=== PATIENT | female | born 1975 | race Caucasian/White ===

== ENCOUNTER 2025-10-24 13:55 | Inpatient (IN) | payer SELFPAY ==
[~2025-10-24] VITALS: Ht 167.6 cm; Wt 73.6 kg
--- NOTE | 2025-10-24 14:26 | ED.PDOC ---
General HPI Comments 50 y.o female presents to the ED for a chief complaint of hematuria and abdominal pain that started 3 days ago. Patient describes pain as a cramping sensation that is constant, non radiating and has no alleviating factors. Patient reports bleeding has increased but denies any blood clot output. She denies fever, chills, nausea, vomiting, diarrhea, dysuria, or inability to urinate. Chief Complaint: Urinary Time Seen by MD: 14:17 Reviewed notes: Nurses Notes, Medications, Allergies Allergies: Coded Allergies: Doxycycline (Verified Allergy, Unknown, SWELLING, 10/24/25) [place] (Verified Allergy, Unknown, ANAPHYLAXIS, 10/24/25) Sulfa Antibiotics (Verified Allergy, Unknown, SWELLING, 10/24/25) Tramadol (Verified Allergy, Unknown, UPSET STOMACH, VOMIT, 10/24/25) Trazodone (Verified Allergy, Unknown, MIGRAINES, 10/24/25) Valproic Acid (Verified Allergy, Unknown, ANAPHYLAXIS, 10/24/25) Information Source: Patient Mode of Arrival: Ambulatory Severity: Moderate Timing: Days (3) Duration: Since onset Onset: Spontaneous Symptoms: Hematuria History of: None Location: Abdomen Modifying factors: None associated signs and symptoms: Abdominal Pain, Hematuria Past Medical History PAST MEDICAL HISTORY: High Lipids, Thyroid Surgical History: , Hernia Repair, Hysterectomy Surgical History (Other): Bilateral ankles, ovarian cyst removal, neck fusion BOTTOM LINER History: Ovarian Cysts Family History Family History: Family hx of heart jeremias, Family hx of lung jeremias Social History Smoker: Non-Smoker Alcohol: Denies ETOH Use Drugs: Marijuana Lives In: Home Constitutional: denies: chills, diaphoresis, fatigue, fever, malaise, sweats, weakness, others EENTM: denies: blurred vision, double vision, ear bleeding, ear discharge, ear drainage, ear pain, ear ringing, eye pain, eye redness, hearing loss, mouth pain, mouth swelling, nasal discharge, nose bleeding, nose congestion, nose pain, photophobia, tearing, throat pain, throat swelling, voice changes, others Respiratory: denies: cough, hemoptysis, orthopnea, SOB at rest, shortness of breath, SOB with excertion, stridor, wheezing, others Cardiovascular: denies: chest pain, dizzy spells, diaphoresis, Dyspnea on exertion, edema, irregular heart beat, left arm pain, lightheadedness, palpitations, PND, syncope, others Gastrointestinal: reports: abdominal pain; denies: abdomen distended, blood streaked bowels, constipated, diarrhea, dysphagia, difficulty swallowing, hematemesis, melena, nausea, poor appetite, poor fluid intake, rectal bleeding, rectal pain, vomiting, others Genitourinary: reports: hematuria; denies: abnormal vagina bleeding, burning, dyspareunia, dysuria, flank pain, frequency, incontinence, pain, , vagina discharge, urgency, others Neurological: denies: dizziness, fainting, headache, left sided numbness, left sided weakness, numbness, paresthesia, pre-existing deficit, right sided numbn ess, right sided weakness, seizure, speech problems, tingling, tremors, weakness, others Musculoskeletal: denies: back pain, gout, joint pain, joint swelling, muscle pain, muscle stiffness, neck pain, others Integumetry: denies: bruises, change in color, change in hair/nails, dryness, laceration, lesions, lumps, rash, wounds, others Allergic/Immunocompromised: denies: Difficulty Healing, Frequent Infections, Hives, Itching, others Hematologic/Lymphatic: denies: anemia, blood clots, easy bleeding, easy bruising, swollen glands, others Endocrine: denies: excessive hunger, excessive sweating, excessive thirst, excessive urination, flushing, intolerance to cold, intolerance to heat, unexplained weight gain, unexplained weight loss, others Psychiatric: denies: anxiety, bipolar disorder, depression, hopeless, panic disorder, schizophrenia, sleepless, suicidal, others All Other Systems: Reviewed and Negative Physical Exam General Appearance: Moderate Distress HEENT: Normal ENT Inspection, Pharynx Normal, TMs Normal Neck: Full Range of Motion, Non-Tender, Normal, Normal Inspection Respiratory: Chest Non-Tender, Lungs Clear, No Accessory Muscle Use, No Respiratory Distress, Normal Breath Sounds Cardiovascular: No Edema, No JVD, No Murmur, No Gallop, Normal Peripheral Pulses, Regular Rate/Rhythm Breast Exam: Deferred Gastrointestinal: Diffuse, No Organomegaly, No Pulsatile Mass, Normal Bowel Sounds, Soft, Tenderness Genitalia: Deferred Pelvic: Deferred Rectal: Deferred Extremities: No calf tenderness, Normal capillary refill, Normal inspection, Normal range of motion, Non-tender, No pedal edema Musculoskeletal : Apperance: Normal Neurologic: Alert, 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 Was a procedure done?: No Differential Diagnosis Kidney stone (Female): Pancreatitis Urinary Problem (Female): PID, Urolithiasis, UTI X-Ray, Labs, Meds, VS Vital Signs Date Time Temp Pulse Resp B/P (MAP) Pulse Ox O2 Delivery O2 Flow Rate FiO2 10/24/25 15:42 98.2 89 18 143/89 (107) 100 98.2 10/24/25 14:00 98.7 115 18 126/87 96 98.7 Lab Test 10/24/25 14:45 10/24/25 14:21 Range/Units White Blood Count 7.3 4.4-10.8 10^3/uL Red Blood Count 4.44 4.0-5.20 10^6/uL Hemoglobin 13.4 12.2-16.2 g/dL Hematocrit 39.4 36.0-46.0 % Mean Corpuscular Volume 88.7 80.0-100.0 fL Mean Corpuscular Hemoglobin 30.3 28.0-32.0 pg Mean Corpuscular Hemoglobin Concent 34.1 32.0-36.0 g/dL Red Cell Distribution Width 13.9 11.8-14.3 % Platelet Count 269 140-450 10^3/uL Mean Platelet Volume 7.4 6.9-10.8 fL Neutrophils (%) (Auto) 56.8 37.0-80.0 % Lymphocytes (%) (Auto) 35.5 10.0-50.0 % Monocytes (%) (Auto) 7.1 0.0-12.0 % Eosinophils (%) (Auto) 0.4 0.0-7.0 % Basophils (%) (Auto) 0.2 0.0-2.0 % Neutrophils # (Auto) 4.1 1.6-8.6 10 ^3/uL Lymphocytes # (Auto) 2.6 0.4-5.4 10 ^3/uL Monocytes # (Auto) 0.5 0-1.3 10 ^3/uL Eosinophils # (Auto) 0 0-0.8 10 ^3/uL Basophils # (Auto) 0 0-0.2 10 ^3/uL Nucleated Red Blood Cells 0.1 % Sodium Level 144 136-145 mmol/L Potassium Level 3.3 L 3.5-5.1 mmol/L Chloride Level 108 H 98-107 mmol/L Carbon Dioxide Level 26 20-31 mmol/L Anion Gap 10 5-15 Blood Urea Nitrogen 8 L 9-23 mg/dL Creatinine 0.84 0.550-1.02 mg/dL Glomerular Filtration Rate Calc 85 >90 mL/min BUN/Creatinine Ratio 9.5 L 10.0-20.0 Serum Glucose 81 74-106 mg/dL Calcium Level 9.4 8.7-10.4 mg/dL Urine Color Light-brown Yellow Urine Clarity Clear Clear Urine pH 6.0 5.0-9.0 Urine Specific [place] 1.007 1.001-1.035 Urine Protein 1+ H Negative Urine Ketones Negative Negative Urine Blood 3+ H Negative /uL Urine Nitrite Negative Negative Urine Bilirubin Negative Negative Urine Urobilinogen Normal Negative mg/dL Urine Leukocyte Esterase Negative Negative /uL Urine RBC 168 0 - 4 /hpf Urine Microscopic WBC 5 0-5 /HPF Urine Squamous Epithelial Cells Few <5 /hpf Urine Bacteria Few H None Seen /hpf Urine Glucose Normal Normal mg/dL Current Medications Medications (Trade) Dose Ordered Sig/Jeffrey Route Start Time Stop Time Status Last Admin Ondansetron HCl (Zofran) 4 mg ONCE ONCE IV 10/24/25 14:30 10/24/25 14:31 DC 10/24/25 15:49 Sodium Chloride 1,000 ml @ 1,000 mls/hr Q1H ONCE IVB 10/24/25 14:30 10/24/25 15:29 DC 10/24/25 15:44 Ketorolac Tromethamine (Toradol Injection) 30 mg ONCE ONCE IV 10/24/25 14:30 10/24/25 14:31 DC 10/24/25 15:48 EXAM: CT CT AB PEL WO CON-NO ORAL OR IV IMPRESSION: 1. No acute abdominopelvic abnormality. 2. Prior cholecystectomy with dilated common bile duct, possibly postsurgical, though comparison with prior imaging is suggested. If clinically indicated, MRCP may be beneficial in further assessment. IV Hep-Lock was established The patient was given a 1 L bolus of normal saline The patient was given Zofran 4 mg IV push The patient was given tramadol 30 mg IV push The urine test is negative for any infection The patient's CBC is within normal limits The chemistry panel is within normal limits. At this time, the patient is being admitted to the hospitalist The patient understands and agrees with the management. We are now giving the patient morphine for the pain in his Zofran for the nausea Images Reviewed?: Images reviewed and evaluated by me Time of 1ST Reevaluation: 14:22 Reevaluation 1ST: Unchanged Patient Education/Counseling: Diagnosis, Treatment, Prognosis Family Education/Counseling: No Family Present SEPSIS Sepsis Screen Date sepsis recognized/suspect: Oct 24, 2025 Time Sepsis recognized/suspect: 1401 Recent Procedure: No On Antibiotic Therapy: No Respiratory Rate >20: No Heart Rate >90: Yes Temp<36 C (96.8 F) or >38.3 C: No SBP <90 or MAP <65 mmHG: No New Acute Mental Status Change: No Is the patient on CPAP, BIPAP,: No Physician Orders Ct Ab Pel Wo Con-No Oral Or Iv (10/24/25 14:27) Heplock Iv (10/24/25 14:27) Vital Signs Date Time Temp Pulse Resp B/P (MAP) Pulse Ox O2 Delivery O2 Flow Rate FiO2 10/24/25 15:42 98.2 89 18 143/89 (107) 100 98.2 10/24/25 14:00 98.7 115 18 126/87 96 98.7 Laboratory Tests Test 10/24/25 14:45 White Blood Count 7.3 10^3/uL (4.4-10.8) Medications Medications Dose Ordered Sig/Jeffrey Route Start Time Stop Time Status Last Admin Dose Admin Ketorolac Tromethamine 30 mg ONCE ONCE IV 10/24/25 14:30 10/24/25 14:31 DC 10/24/25 15:48 Ondansetron HCl 4 mg ONCE ONCE IV 10/24/25 14:30 10/24/25 14:31 DC 10/24/25 15:49 Sodium Chloride 1,000 ml @ 1,000 mls/hr Q1H ONCE IVB 10/24/25 14:30 10/24/25 15:29 DC 10/24/25 15:44 Departure 1 Departure Time of Disposition: 17:27 Impression: Primary Impression: Intractable abdominal pain Disposition: 09 ADMITTED INPATIENT Admit to: Med Surg Condition: Fair Critical Care Note Critical Care Time?: No Stability Stability form required: No I personally scribed for RHONDA RUIZ MD ([email or web address]) on 10/24/25 at 14:26. Electronically submitted by Katelyn Guerra ([facility]). I personally scribed for RHONDA RUIZ MD ([email or web address]) on 10/24/25 at 16:36. Electronically submitted by Katelyn Guerra ([facility]). RHONDA RUIZ MD Oct 24, 2025 14:26
[2025-10-24 15:02] LABS: Sodium 144 mmol/L (136-145)
[2025-10-24 15:03] LABS: Anion Gap 10 (5-15); Calcium 9.4 mg/dL (8.7-10.4); Carbon Dioxide 26 mmol/L (20-31)
[2025-10-24 15:06] LABS: Chloride 108 mmol/L (98-107); Hematocrit 39.4 % (36.0-46.0); Hemoglobin 13.4 g/dL (12.2-16.2); Mean Corpuscular Hemoglobin 30.3 pg (28.0-32.0); Mean Corpuscular Volume 88.7 fL (80.0-100.0); Nucleated Red Blood Cells % 0.1 %; Potassium 3.3 mmol/L (3.5-5.1)
[2025-10-24 15:08] LABS: BUN/Creatinine Ratio 9.5 (10.0-20.0); Blood Urea Nitrogen 8 mg/dL (9-23); Glucose 81 mg/dL (74-106)
--- NOTE | 2025-10-24 15:14 | DVH ---
EXAM: CT CT AB PEL WO CON-NO ORAL OR IV HISTORY: flank pain COMPARISON STUDY: None TECHNIQUE: Multidetector CT of the abdomen and pelvis was performed from lung bases to pubic symphysis. Imaging was performed without IV contrast. Axial, coronal, and sagittal multiplanar reformats were obtained from the axial data set by the technologist. RADIATION DOSE: CTDI vol 5.7 mGy. DLP 284.4 mGy.cm FINDINGS: Limited evaluation of the solid organs in the absence of IV contrast. Lungs: The lung bases are clear. Liver: Unremarkable. Spleen: Unremarkable. Pancreas: Unremarkable. Gallbladder: Prior cholecystectomy with dilated common bile duct measuring up to 14 mm. Adrenals: Unremarkable Kidneys: Unremarkable. Pelvic Viscera: Unremarkable. Vasculature: Unremarkable. Retroperitoneum: Unremarkable. Bowel: No bowel obstruction. Portions of the bowel are decompressed, limiting assessment. The appendix is normal. Musculoskeletal: Unremarkable. Soft tissues: Tiny fat containing ventral abdominal wall hernia. Spinal stimulator is noted within the right flank. IMPRESSION: 1. No acute abdominopelvic abnormality. 2. Prior cholecystectomy with dilated common bile duct, possibly postsurgical, though comparison with prior imaging is suggested. If clinically indicated, MRCP may be beneficial in further assessment. 3. Incidental findings as detailed.
[2025-10-24] MEDS: SODIUM CHLORIDE 0.9% 1,000 ML IVB ONE (15:44)
[2025-10-24] MEDS: KETOROLAC TROMETH 30 MG/ML 1ML VIAL IV ONE ×2 (15:48→22:43)
[2025-10-24] MEDS: ONDANSETRON HCL 4 MG/2 ML VIAL IV ONE ×2 (15:49→19:09)
[2025-10-24 16:29] LABS: Urine Protein, UAD 1+ (Negative)
[2025-10-24] MEDS: MORPHINE SULFATE 4 MG/ML SYR/VIAL IV ONE (19:09)
[2025-10-24] MEDS: ACETAMINOPHEN 325 MG TAB PO ONE (22:43)
[2025-10-24] MEDS: PANTOPRAZOLE 40 MG/10 ML VIAL INJ IV ONE (22:43)
[2025-10-24 23:18] VITALS: PULSE 81; RESP 20; O2SAT 97
[2025-10-24] MEDS: HYDROmorphone HCL 2 MG/ML VL/or syr IV ONE (23:51)
[2025-10-25] VITALS (7 sets, daily range): BP systolic 116–154; BP diastolic 79–98; PULSE 66–98; RESP 16–20; TEMP 97.9–98.6; O2SAT 96–98
[2025-10-25] MEDS: SODIUM CHLORIDE 0.9% 1,000 ML IV ONE (02:30)
[2025-10-25] MEDS: POTASSIUM EFFERVESENT TAB 25 MEQ PO ONE (02:30)
[2025-10-25] MEDS: OXYCODONE W/ ACETAMINOPHEN 5/325MG TABLET PO ONE (02:30)
[2025-10-25] MEDS: levETIRAcetam 500 MG TAB PO ONE (02:30)
[2025-10-25] MEDS: PANTOPRAZOLE 40 MG/10 ML VIAL INJ IV ONE (02:30)
--- NOTE | 2025-10-25 02:40 | DVHHPRES ---
History of Present Illness Resident Creating Document: SATHISH MCKEE RESDIENT History of Present Illness This is a 50-year-old lady with past medical history of seizure, endometriosis (status post hysterectomy in 2016), degenerative disc disease, depression, seizure, anxiety, colitis, came to the hospital due to abdominal pain and blood in urine since 3 days. Pain is localized at lower abdomen, radiating to the back, constant, 10/10 in intensity, crampy in nature, with no clear exacerbating or relieving factor. She also reports of nausea and vomiting. She denies fever, chest pain, shortness of breaths, or any recent sick contact. PMHx: Seizure, endometriosis (status post hysterectomy in 2016), degenerative disc disease, depression, seizure, anxiety, colitis PSHx: Hysterectomy, cholecystectomy and umbilical hernia Family history: Nonsignificant Social history: Ex-smoker, denies current any other drug use Home medication: Keppra 1 g b.i.d., Percocet 10 mg q.6 hour Allergic history: Doxycycline, lithium, sulfa antibiotic, tramadol, trazodone, valproic acid Patient seen and examined at the bedside. Patient is still complaining of severe abdominal pain. Review of Systems Review of Systems General: patient denies fever, fatigue, weaknes, sweating, any recent changes in appetite and weight HEENT: No headaches, visiual changes, hearing loss, tinnitus, nasal congestion and discharge, and sore throat. Cardiovascular: Denies chest pain, palpitations, dyspnea on exertion, orthopnea, or claudication. Respiratory: No cough, and wheezing. Gastrointestinal: Reports severe abdominal pain, nausea and vomiting Genitourinary: Reports blood in urine Endocrine: No heat or cold intolerance, polydipsia, polyuria, and polyphagia. Neurological: No dizziness, extremity weakness and numbness, tremors, gait disturbance, seizures, and memory impairment. Psychiatric: Denies depression, anxiety,or insomnia. Musculoskeletal: Denies neck pain, stiffness and swelling, back pain, muscle weakness, joint pain, stiffness, swelling, or limited range of motion. Skin: No rashes, itching, skin lesion, changes in hair, nail, skin texture and breast. Hematologic/Lymphatic: Denies easy bruising, bleeding tendencies, or lymph node enlargement. Allergies: Coded Allergies: Doxycycline (Verified Allergy, Unknown, SWELLING, 10/24/25) [place] (Verified Allergy, Unknown, ANAPHYLAXIS, 10/24/25) Sulfa Antibiotics (Verified Allergy, Unknown, SWELLING, 10/24/25) Tramadol (Verified Allergy, Unknown, UPSET STOMACH, VOMIT, 10/24/25) Trazodone (Verified Allergy, Unknown, MIGRAINES, 10/24/25) Valproic Acid (Verified Allergy, Unknown, ANAPHYLAXIS, 10/24/25) Medications Current Medications Medications Dose Ordered Sig/Jeffrey Route Start Time Stop Time Status Last Admin Dose Admin Ondansetron HCl 4 mg Q4HP PRN IV 10/25/25 02:30 Exam Vital Signs Vital Signs Date Time Temp Pulse Resp B/P (MAP) Pulse Ox O2 Delivery O2 Flow Rate FiO2 10/25/25 00:21 81 20 109/69 10/24/25 23:18 98.1 97 98.1 10/24/25 23:18 Room Air* 0 21 Exam General Appearance: Alert, Oriented X3, Cooperative, No acute distress HEENT: Atraumatic, PERRLA, EOMI, Mucous membrane moist/pink Respiratory: Clear to auscultation, Normal air movement Cardiovascular: Regular rate, Normal S1, Normal S2, No murmurs, no chest wall tenderness Abdominal: Abdominal tenderness Extremities: No clubbing, No cyanosis, No edema, Normal pulses, No tenderness/swelling Skin: No rashes, No breakdown, No significant lesion Neuro: Normal gait, Normal speech, Strength at 5/5 X4 ext, Normal tone, Sensation intact, Cranial nerves 3-12 NL, Reflexes 2+ Psych/Mental Status: Mental status NL, Mood NL Labs/Xrays Labs Test 10/24/25 14:45 10/24/25 14:21 Range/Units White Blood Count 7.3 4.4-10.8 10^3/uL Red Blood Count 4.44 4.0-5.20 10^6/uL Hemoglobin 13.4 12.2-16.2 g/dL Hematocrit 39.4 36.0-46.0 % Mean Corpuscular Volume 88.7 80.0-100.0 fL Mean Corpuscular Hemoglobin 30.3 28.0-32.0 pg Mean Corpuscular Hemoglobin Concent 34.1 32.0-36.0 g/dL Red Cell Distribution Width 13.9 11.8-14.3 % Platelet Count 269 140-450 10^3/uL Mean Platelet Volume 7.4 6.9-10.8 fL Neutrophils (%) (Auto) 56.8 37.0-80.0 % Lymphocytes (%) (Auto) 35.5 10.0-50.0 % Monocytes (%) (Auto) 7.1 0.0-12.0 % Eosinophils (%) (Auto) 0.4 0.0-7.0 % Basophils (%) (Auto) 0.2 0.0-2.0 % Neutrophils # (Auto) 4.1 1.6-8.6 10 ^3/uL Lymphocytes # (Auto) 2.6 0.4-5.4 10 ^3/uL Monocytes # (Auto) 0.5 0-1.3 10 ^3/uL Eosinophils # (Auto) 0 0-0.8 10 ^3/uL Basophils # (Auto) 0 0-0.2 10 ^3/uL Nucleated Red Blood Cells 0.1 % Sodium Level 144 136-145 mmol/L Potassium Level 3.3 L 3.5-5.1 mmol/L Chloride Level 108 H 98-107 mmol/L Carbon Dioxide Level 26 20-31 mmol/L Anion Gap 10 5-15 Blood Urea Nitrogen 8 L 9-23 mg/dL Creatinine 0.84 0.550-1.02 mg/dL Glomerular Filtration Rate Calc 85 >90 mL/min BUN/Creatinine Ratio 9.5 L 10.0-20.0 Serum Glucose 81 74-106 mg/dL Calcium Level 9.4 8.7-10.4 mg/dL Urine Color Light-brown Yellow Urine Clarity Clear Clear Urine pH 6.0 5.0-9.0 Urine Specific [place] 1.007 1.001-1.035 Urine Protein 1+ H Negative Urine Ketones Negative Negative Urine Blood 3+ H Negative /uL Urine Nitrite Negative Negative Urine Bilirubin Negative Negative Urine Urobilinogen Normal Negative mg/dL Urine Leukocyte Esterase Negative Negative /uL Urine RBC 168 0 - 4 /hpf Urine Microscopic WBC 5 0-5 /HPF Urine Squamous Epithelial Cells Few <5 /hpf Urine Bacteria Few H None Seen /hpf Urine Glucose Normal Normal mg/dL SEPSIS Sepsis Screen Date sepsis recognized/suspect: Oct 24, 2025 Time Sepsis recognized/suspect: 2319 Recent Procedure: No On Antibiotic Therapy: No Respiratory Rate >20: No Heart Rate >90: No Temp<36 C (96.8 F) or >38.3 C: No SBP <90 or MAP <65 mmHG: No New Acute Mental Status Change: No Is the patient on CPAP, BIPAP,: No Physician Orders Admit (10/25/25 02:16) Code Status (10/25/25 02:16) Vital Signs .PER UNIT PROTOCOL (10/25/25 02:16) Review Orders With Adm.Md (10/25/25 02:16) Notify Md Of Changes From Base (10/25/25 02:16) Advance Directive (10/25/25 02:16) Patient Condition (10/25/25 02:16) Allergies (10/25/25 02:16) Ondansetron Hcl (Zofran) (10/25/25 02:30) Oxygen By Nasal Cannula (10/25/25 02:16) Stat Ekg For Chest Pain (10/25/25 02:16) Notify Md Of Changes From Base (10/25/25 02:16) Emergency Dysrhythmia Protocol (10/25/25 02:16) Rhythm Strips Once Every Shift (10/25/25 02:16) Complete Blood Count (10/25/25 04:00) PTPTT (10/25/25 02:16) Urine Bacterial Culture (10/25/25 02:16) Drug Screen (10/25/25 02:16) Blood Alcohol (10/25/25 02:16) Magnesium (10/25/25 02:16) Thyroid Stimulating Hormone (10/25/25 02:16) Lipid Panel (10/25/25 02:16) Comprehensive Metabolic Panel (10/25/25 02:16) Acetaminophen Tablet (Tylenol Tablet) (10/25/25 06:00) Ketorolac Injection (Toradol Injection) (10/25/25 02:30) Morphine Sulfate Injection (10/25/25 02:30) Pantoprazole (Protonix) (10/25/25 02:30) Pantoprazole (Protonix) (10/25/25 10:00) Potassium Effervesent Tab (Klor-Con/Ef) (10/25/25 02:30) Ceftriaxone Ivpb Rocephin (10/25/25 09:00) Ceftriaxone Ivpb Rocephin (10/25/25 02:30) Levetiracetam Tablet (Keppra Tablet) (10/25/25 10:00) Levetiracetam Tablet (Keppra Tablet) (10/25/25 02:30) Oxycodone W/ Acet 5/325mg Tab (Percocet (10/25/25 06:00) Oxycodone W/ Acet 5/325mg Tab (Percocet (10/25/25 02:30) Lactic Acid W/ Reflex Order (10/25/25 02:22) Vital Signs Date Time Temp Pulse Resp B/P (MAP) Pulse Ox O2 Delivery O2 Flow Rate FiO2 10/25/25 00:21 81 20 109/69 10/24/25 23:51 85 20 127/80 10/24/25 23:18 98.1 87 20 139/93 (108) 97 98.1 10/24/25 23:18 81 20 97 Room Air* 0 21 10/24/25 19:57 98.3 88 18 159/110 (126) 97 98.3 10/24/25 19:39 85 20 139/93 10/24/25 19:09 74 17 152/97 Laboratory Tests Test 10/24/25 14:45 White Blood Count 7.3 10^3/uL (4.4-10.8) Medications Medications Dose Ordered Sig/Jeffrey Route Start Time Stop Time Status Last Admin Dose Admin Acetaminophen 650 mg ONCE ONCE PO 10/24/25 22:15 10/24/25 22:16 DC 10/24/25 22:43 650 MG Hydromorphone HCl 0.5 mg ONCE ONCE IV 10/24/25 23:30 10/24/25 23:31 DC 10/24/25 23:51 0.5 MG Ketorolac Tromethamine 30 mg ONCE ONCE IV 10/24/25 14:30 10/24/25 14:31 DC 10/24/25 15:48 30 MG Ketorolac Tromethamine 30 mg ONCE ONCE IV 10/24/25 22:15 10/24/25 22:16 DC 10/24/25 22:43 30 MG Morphine Sulfate 4 mg ONCE ONCE IV 10/24/25 17:30 10/24/25 17:50 DC 10/24/25 19:09 4 MG Ondansetron HCl 4 mg ONCE ONCE IV 10/24/25 14:30 10/24/25 14:31 DC 10/24/25 15:49 4 MG Ondansetron HCl 4 mg ONCE ONCE IV 10/24/25 17:30 10/24/25 17:49 DC 10/24/25 19:09 4 MG Pantoprazole Sodium 40 mg ONCE ONCE IV 10/24/25 22:15 10/24/25 22:16 DC 10/24/25 22:43 40 MG Sodium Chloride 1,000 ml @ 1,000 mls/hr Q1H ONCE IVB 10/24/25 14:30 10/24/25 15:29 DC 10/24/25 15:44 1,000 MLS/HR Assessment/Plan Assessment/Plan Abdominal pain, possibly due to UTI/endometriosis/adenomyosis Complicated UTI Possible endometriosis/adenomyosis Seizure Degenerative disc disease Depression Anxiety * CT scan shows, prior cholecystectomy with dilated common bile duct, possibly postsurgical, though comparison with prior imaging is suggested Plan/recommendation: * Empiric antibiotic Rocephin * Pain killer * IV fluid * Continue home meds * Urine culture DIET: Regular diet DVT PROPHYLAXIS: SCD GI PROPHYLAXIS:: Protonix CODE STATUS: Goal of care discussed for more than 18 minutes, full code DISPOSITION: Med/surge Patient's status and plan discussed with the patient. Case discussed with . Plan discussed with: Patient, Other (RN) My Orders Orders - SATHISH MCKEE RESDIDENY Procedure Category Date Status Time Admit ADMIT 10/25/25 Transmitted 02:16 Code Status CODE 10/25/25 Transmitted 02:16 Vital Signs GAYLA 10/25/25 In Process 02:16 Review Orders With [facility] 10/25/25 In Process Adm.Md 02:16 Notify Md Of Changes [facility] 10/25/25 In Process From Base 02:16 Advance Directive GAYLA 10/25/25 In Process 02:16 Patient Condition ORDERS 10/25/25 Transmitted 02:16 Allergies GAYLA 10/25/25 In Process 02:16 Ondansetron Hcl PHA 10/25/25 In Process (Zofran) 02:30 Oxygen By Nasal RT 10/25/25 Transmitted Cannula 02:16 Stat Ekg For Chest GAYLA 10/25/25 In Process Pain 02:16 Notify Of Changes [facility] 10/25/25 In Process From Base 02:16 Emergency Dysrhythmia GAYLA 10/25/25 In Process Protocol 02:16 Rhythm Strips Once GAYLA 10/25/25 In Process Every Shift 02:16 Complete Blood Count LAB 10/25/25 Logged 04:00 PTPTT LAB 10/25/25 Logged 02:16 Urine Bacterial AURE 10/25/25 Logged Culture 02:16 Drug Screen LAB 10/25/25 Logged 02:16 Blood Alcohol LAB 10/25/25 Logged 02:16 Magnesium LAB 10/25/25 Logged 02:16 Thyroid Stimulating LAB 10/25/25 Logged Hormone 02:16 Lipid Panel LAB 10/25/25 Logged 02:16 Comprehensive LAB 10/25/25 Logged Metabolic Panel 02:16 Acetaminophen Tablet PHA 10/25/25 Transmitted (Tylenol Tablet) 06:00 Ketorolac Injection PHA 10/25/25 Verified (Toradol Injection) 02:30 Morphine Sulfate PHA 10/25/25 Transmitted Injection 02:30 Pantoprazole PHA 10/25/25 Transmitted (Protonix) 02:30 Pantoprazole PHA 10/25/25 Transmitted (Protonix) 10:00 Potassium Effervesent PHA 10/25/25 Transmitted Tab (Klor-Con/Ef) 02:30 Ceftriaxone Ivpb PHA 10/25/25 Transmitted Rocephin 09:00 Ceftriaxone Ivpb PHA 10/25/25 Transmitted Rocephin 02:30 Levetiracetam Tablet PHA 10/25/25 Transmitted (Keppra Tablet) 10:00 Levetiracetam Tablet PHA 10/25/25 Transmitted (Keppra Tablet) 02:30 Oxycodone W/ Acet PHA 10/25/25 Transmitted 5/325mg Tab (Percocet 06:00 Oxycodone W/ Acet PHA 10/25/25 Transmitted 5/325mg Tab (Percocet 02:30 Lactic Acid W/ Reflex LAB 10/25/25 Transmitted Order 02:22 Visit Coding STANDARD RES Billing Provider: SHANT CARTER MD Date of Service if different f: Oct 25, 2025 Common Visit Codes: [id number] INP/OBS CARE (HIGH) Secondary Visit Codes: [id number] CARE PLAN ADDL 30MIN HEWADMAL,HEWAD RESDIENT Oct 25, 2025 02:40
[2025-10-25] MEDS: MORPHINE SULFATE 4 MG/ML SYR/VIAL IV PRN ×2 (04:51→15:21)
[2025-10-25] MEDS ORDERED: PREG100C PO (05:51)
[2025-10-25] MEDS ORDERED: PRAZ1CAP2 PO (05:51)
[2025-10-25] MEDS ORDERED: CLON-1003 PO (05:51)
[2025-10-25] MEDS ORDERED: PRAZ1CAP48 PO (05:51)
[2025-10-25] MEDS ORDERED: LEVO25TA6 PO (05:51)
[2025-10-25] MEDS ORDERED: LEVE100012 PO (05:51)
[2025-10-25] MEDS ORDERED: BACL20TA PO (05:51)
[2025-10-25] MEDS ORDERED: FLUO40CA PO (05:51)
[2025-10-25] MEDS ORDERED: ATOR20TA50 PO (05:51)
[2025-10-25] MEDS ORDERED: PERCOT PO (05:51)
[2025-10-25] MEDS: ACETAMINOPHEN 325 MG TAB PO SCH (06:00)
[2025-10-25] MEDS: OXYCODONE W/ ACETAMINOPHEN 5/325MG TABLET PO SCH (06:19)
[2025-10-25 06:58] LABS: Hematocrit 36.1 % (36.0-46.0); Hemoglobin 12.2 g/dL (12.2-16.2); Mean Corpuscular Hemoglobin 30.1 pg (28.0-32.0); Mean Corpuscular Volume 89.0 fL (80.0-100.0); Nucleated Red Blood Cells % 0.0 %
[2025-10-25 07:00] LABS: INR 1.05 (0.9-1.15); Partial Thromboplastin Time 30.2 SEC (24.5-34.5); Prothrombin Time 11.1 sec (9.3-11.8)
[2025-10-25 07:08] LABS: Alanine Aminotransferase 17 U/L (7-40); Alkaline Phosphatase 79 U/L (46-116); Anion Gap 8 (5-15); BUN/Creatinine Ratio 11.3 (10.0-20.0); Calcium 8.7 mg/dL (8.7-10.4); Carbon Dioxide 28 mmol/L (20-31); Glucose 79 mg/dL (74-106); Magnesium 2.0 mg/dL (1.6-2.6); Potassium 3.7 mmol/L (3.5-5.1); Sodium 144 mmol/L (136-145); Total Protein 6.2 g/dL (5.7-8.2); Triglycerides 64 mg/dL (< 150)
[2025-10-25 07:09] LABS: Albumin 3.9 g/dL (3.2-4.8); Cholesterol 126 mg/dL (< 200); HDL Cholesterol 45 mg/dL (40-59)
[2025-10-25 07:10] LABS: Bilirubin, Total 0.2 mg/dL (0.2-1.0); Blood Urea Nitrogen 9 mg/dL (9-23); Chloride 108 mmol/L (98-107)
[2025-10-25 09:29] LABS: Barbiturate Scree,Urine Neg (NEGATIVE); Benzodiazephine Screen, Urine Neg (NEGATIVE); Opiate Scree,Urine Neg (NEGATIVE); Phencyclidine Screen, Urine Neg (NEGATIVE)
[2025-10-25 09:37] LABS: Amphetamine Screen, Urine Neg (NEGATIVE); Cannabinoid Screen, Urine Pos (NEGATIVE); Cocaine Screen, Urine Neg (NEGATIVE)
[2025-10-25] MEDS: PANTOPRAZOLE 40 MG/10 ML VIAL INJ IV SCH (10:26)
[2025-10-25] MEDS: levETIRAcetam 500 MG TAB PO SCH (10:26)
[2025-10-25] MEDS ORDERED: MORPHINE SULFATE INJ 2 MG/ml SYRG IV PRN ×3 (14:45→15:15)
[2025-10-25] MEDS: clonazePAM 0.5 MG TAB PO ONE (16:35)
[2025-10-25] MEDS: OXYCODONE W/ ACETAMINOPHEN 5/325MG TABLET PO PRN (17:35)
[2025-10-25] MEDS: clonazePAM 0.5 MG TAB PO SCH (21:20)
[2025-10-25] MEDS ORDERED: clonazePAM 0.5 MG TAB PO SCH (22:00)
[2025-10-26] VITALS (8 sets, daily range): BP systolic 132–151; BP diastolic 87–101; PULSE 67–89; RESP 17–20; TEMP 96.5–98.4; O2SAT 95–99
[2025-10-26] MEDS: BACLOFEN 10 MG TAB PO ONE ×2 (00:04→20:33)
[2025-10-26] MEDS: HYDROmorphone HCL 2 MG/ML VL/or syr IV PRN (11:55)
--- NOTE | 2025-10-26 17:24 | DVHPN2 ---
Subjective Patient complaining of abdominal pain and abdominal cramping, feeling little better than yesterday. Also she has a chronic back pain requesting Dilaudid IV as morphine IV is not working or no morphine in the pharmacy. Patient also complaining of blood in the urine. 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 Medications Current Medications Medications Dose Ordered Sig/Jeffrey Route Start Time Stop Time Status Last Admin Dose Admin Ondansetron HCl 4 mg Q4HP PRN IV 10/25/25 02:30 Acetaminophen 650 mg Q6HR PO 10/25/25 06:00 Ketorolac Tromethamine 15 mg Q6HPRN PRN IV 10/25/25 02:30 10/30/25 02:29 Pantoprazole Sodium 40 mg DAILY IV 10/25/25 10:00 10/26/25 08:42 40 MG Ceftriaxone Sodium 50 ml @ 100 mls/hr DAILY@ IV 10/25/25 09:00 UNV Levetiracetam 500 mg BID PO 10/25/25 10:00 10/26/25 08:42 500 MG Ceftriaxone Sodium 50 ml @ 100 mls/hr DAILY@ IV 10/26/25 03:00 10/26/25 08:42 100 MLS/HR Oxycodone/ Acetaminophen 2 tab Q6HR PRN PO 10/25/25 14:45 10/26/25 14:25 2 TAB Morphine Sulfate 2 mg Q3HPRN PRN IV 10/25/25 15:30 10/26/25 09:12 2 MG Clonazepam 0.25 mg TID PO 10/25/25 22:00 10/26/25 14:25 0.25 MG Hydromorphone HCl 0.25 mg Q3HPRN PRN IV 10/26/25 11:15 10/26/25 15:56 0.25 MG Laboratory Results Laboratory Tests 10/25/25 06:30 Urinalysis Test 10/24/25 14:21 Urine Color Light-brown (Yellow) Urine Clarity Clear (Clear) Urine pH 6.0 (5.0-9.0) Urine Specific [place] 1.007 (1.001-1.035) Urine Protein 1+ (Negative) H Urine Ketones Negative (Negative) Urine Blood 3+ /uL (Negative) H Urine Nitrite Negative (Negative) Urine Bilirubin Negative (Negative) Urine Urobilinogen Normal mg/dL (Negative) Urine Leukocyte Esterase Negative /uL (Negative) Urine RBC 168 /hpf (0 - 4) Urine Microscopic WBC 5 /HPF (0-5) Urine Squamous Epithelial Cells Few /hpf (<5) Urine Bacteria Few /hpf (None Seen) H Urine Glucose Normal mg/dL (Normal) Microbiology Microbiology Date/Time Source Procedure Growth Status 10/24/25 14:21 Voided Urine Urine Culture - Preliminary Resulted Assessment/Plan Assessment/Plan 50-year-old female with a known history of seizure disorder, endometriosis, anxiety disorder, degenerative disc disease, chronic back pain presented to the hospital with the abdominal pain and blood in the urine found to have 1. Acute cystitis with a gross hematuria 2. Abdominal pain with a mildly dilated CBD suspected secondary to postop currently cystectomy, patient is requesting GI consult 3. Acute on chronic back pain 4. Seizure disorder 5. Anxiety disorder 6. Endometriosis -continue pain meds as needed follow up urine culture, discharge plan once pain is better controlled Plan discussed with: Patient My Orders Orders - MADISON THOMSON MD Procedure Category Date Status Time Hydromorphone PHA 10/26/25 In Process Injection (Dilaudid 11:15 * Gi Dvh Finisher Denture CONS 10/26/25 Transmitted 14:47 * Urology Consult CONS 10/26/25 Transmitted 16:10 Problem List: (1) Intractable abdominal pain Date of Service: Oct 26, 2025 Billing Provider: MADISON THOMSON MD Common Visit Codes: [id number] INP/OBS CARE(HIGH) MADISON THOMSON MD Oct 26, 2025 17:24
[2025-10-26] MEDS: MELATONIN 5 MG TAB PO ONE (21:22)
[2025-10-26] MEDS: ONDANSETRON HCL 4 MG/2 ML VIAL IV PRN (21:26)
[2025-10-27] VITALS (8 sets, daily range): BP systolic 108–124; BP diastolic 73–86; PULSE 63–90; RESP 17–19; TEMP 97.6–98.9; O2SAT 93–98
[2025-10-27] MEDS: KETOROLAC TROMETH 30 MG/ML 1ML VIAL IV PRN (01:21)
[2025-10-27] MEDS ORDERED: PRAZ1CAP2 PO (09:46)
--- NOTE | 2025-10-27 09:56 | DVHINCON2 ---
Date of service: Oct 27, 2025 Referring Physician hospitalist Reason for Consultation hematuria History of Present Illness History Source: Patient Exam Limitations: No limitations HPI 50-year-old lady with past medical history of seizure, endometriosis (status post hysterectomy in 2016), degenerative disc disease, depression, seizure, anxiety, colitis, came to the hospital due to abdominal pain and blood in urine since 3 days. Pain is localized at lower abdomen, radiating to the back, consta nt, 10/10 in intensity, crampy in nature, with no clear exacerbating or relieving factor. She also reports of nausea and vomiting. She denies fever, chest pain, shortness of breaths, or any recent sick contact. Home Meds Reported Medications Prazosin Hcl (Minipres) 1 Mg Cp, 10 MG PO HS, CAP 10/27/25 Atorvastatin Calcium (ATORVASTATIN CALCIUM) 20 Mg Tab, 1 TAB PO DAILY, #30 TAB 5 Refills 10/25/25 Prazosin Hcl (Minipres) 1 Mg Cp, 1 CAP PO QPM, #30 CAP 2 Refills 10/25/25 Prazosin HCl (Prazosin Hydrochloride) 1 Mg Cap, 1 MG PO, CAP 10/25/25 Fluoxetine Hcl (Fluoxetine Hcl) 40 Mg Cap, 1 CAP PO DAILY, #30 CAP 2 Refills 10/25/25 Levetiracetam (Keppra) 1,000 Mg Tab, 1 TAB PO BID, #180 TAB 3 Refills 10/25/25 Levothyroxine Sodium (Levothyroxine Sodium) 25 Mcg Tab, 1 TAB PO DAILY, #30 TAB 5 Refills 10/25/25 Pregabalin (Lyrica) 100 Mg Cap, 1 CAP PO BID, #60 CAP 2 Refills 10/25/25 Baclofen (Baclofen) 20 Mg Tab, 1 TAB PO TID, #90 TAB 10/25/25 Clonazepam (Klonopin) 0.5 Mg Tab, 1 TAB PO TID, #90 TAB 10/25/25 Oxycodone W/ Acetaminophen (Percocet 5/325MG) 1 Tab Tb, 1 TAB PO QID, #120 TAB 10/25/25 Discontinued Reported Medications Prazosin Hcl (Minipres) 1 Mg Cp, 10 MG PO HS, CAP 10/27/25 Past Medical History Patient Family History: Patient reports no known family medical history. Review of Systems Gastrointestinal: Abdominal Pain Genitourinary: Frequency, Pain H&P Exam Vital Signs Vital Signs Date Time Temp Pulse Resp B/P (MAP) Pulse Ox O2 Delivery O2 Flow Rate FiO2 10/27/25 09:43 75 17 111/77 10/27/25 09:19 98.9 93 98.9 10/26/25 20:00 Room Air* 0 21 Labs/Xrays [address] [address] Ph: [phone] DIAGNOSTIC IMAGING Diagnostic Imaging Report : [id number] Signed PATIENT: MICHELE MORRIS ACCT: [id number] UNIT: [id number] : 1975 LOC: ER ROOM / BED: / AGE / SEX: 50 / F ADM STATUS: REG ER SERVICE 1427 ORDERING PHYSICIAN: RHONDA RUIZ MD PROCEDURE(s): ABPL - CT AB PEL WO CON-NO ORAL OR IV REASON: flank pain ORDER NUMBER(s): [id number], ACCESSION NUMBER(s): [id number] EXAM: CT CT AB PEL WO CON-NO ORAL OR IV HISTORY: flank pain COMPARISON STUDY: None TECHNIQUE: Multidetector CT of the abdomen and pelvis was performed from lung bases to pubic symphysis. Imaging was performed without IV contrast. Axial, coronal, and sagittal multiplanar reformats were obtained from the axial data set by the technologist. RADIATION DOSE: CTDI vol 5.7 mGy. DLP 284.4 mGy.cm FINDINGS: Limited evaluation of the solid organs in the absence of IV contrast. Lungs: The lung bases are clear. Liver: Unremarkable. Spleen: Unremarkable. Pancreas: Unremarkable. Gallbladder: Prior cholecystectomy with dilated common bile duct measuring up to 14 mm. Adrenals: Unremarkable Kidneys: Unremarkable. Pelvic Viscera: Unremarkable. Vasculature: Unremarkable. Retroperitoneum: Unremarkable. Bowel: No bowel obstruction. Portions of the bowel are decompressed, limiting assessment. The appendix is normal. Musculoskeletal: Unremarkable. Soft tissues: Tiny fat containing ventral abdominal wall hernia. Spinal stimulator is noted within the right flank. IMPRESSION: 1. No acute abdominopelvic abnormality. 2. Prior cholecystectomy with dilated common bile duct, possibly postsurgical, though comparison with prior imaging is suggested. If clinically indicated, MRCP may be beneficial in further assessment. 3. Incidental findings as detailed. ATED BY: MYNOR MAC MD DICTATED DATE/TIME: 10/24/251510 SIGNED BY: MYNOR MAC MD SIGNED DATE/TIME: 10/24/251510 CC: Labs Test 10/25/25 06:30 10/24/25 14:21 Range/Units White Blood Count 6.9 4.4-10.8 10^3/uL Red Blood Count 4.06 4.0-5.20 10^6/uL Hemoglobin 12.2 12.2-16.2 g/dL Hematocrit 36.1 36.0-46.0 % Mean Corpuscular Volume 89.0 80.0-100.0 fL Mean Corpuscular Hemoglobin 30.1 28.0-32.0 pg Mean Corpuscular Hemoglobin Concent 33.9 32.0-36.0 g/dL Red Cell Distribution Width 14.3 11.8-14.3 % Platelet Count 202 140-450 10^3/uL Mean Platelet Volume 7.6 6.9-10.8 fL Neutrophils (%) (Auto) 61.6 37.0-80.0 % Lymphocytes (%) (Auto) 30.0 10.0-50.0 % Monocytes (%) (Auto) 7.4 0.0-12.0 % Eosinophils (%) (Auto) 0.8 0.0-7.0 % Basophils (%) (Auto) 0.2 0.0-2.0 % Neutrophils # (Auto) 4.3 1.6-8.6 10 ^3/uL Lymphocytes # (Auto) 2.1 0.4-5.4 10 ^3/uL Monocytes # (Auto) 0.5 0-1.3 10 ^3/uL Eosinophils # (Auto) 0.1 0-0.8 10 ^3/uL Basophils # (Auto) 0 0-0.2 10 ^3/uL Nucleated Red Blood Cells 0.0 % Prothrombin Time 11.1 9.3-11.8 sec Prothrombin Time INR 1.05 0.9-1.15 Activated Partial Thromboplast Time 30.2 24.5-34.5 SEC Sodium Level 144 136-145 mmol/L Potassium Level 3.7 3.5-5.1 mmol/L Chloride Level 108 H 98-107 mmol/L Carbon Dioxide Level 28 20-31 mmol/L Anion Gap 8 5-15 Blood Urea Nitrogen 9 9-23 mg/dL Creatinine 0.80 0.550-1.02 mg/dL Glomerular Filtration Rate Calc 90 >90 mL/min BUN/Creatinine Ratio 11.3 10.0-20.0 Serum Glucose 79 74-106 mg/dL Lactic Acid Level 0.7 0.4-2.0 mmol/L Calcium Level 8.7 8.7-10.4 mg/dL Magnesium Level 2.0 1.6-2.6 mg/dL Total Bilirubin 0.2 0.2-1.0 mg/dL Aspartate Amino Transferase (AST) 24 13-40 U/L Alanine Aminotransferase (ALT) 17 7-40 U/L Alkaline Phosphatase 79 46-116 U/L Total Protein 6.2 5.7-8.2 g/dL Albumin 3.9 3.2-4.8 g/dL Triglycerides Level 64 < 150 mg/dL Cholesterol Level 126 < 200 mg/dL LDL Cholesterol 72 < 100 mg/dL HDL Cholesterol 45 40-59 mg/dL Thyroid Stimulating Hormone (TSH) 1.30 0.55-4.78 uIU/mL Plasma/Serum Blood Alcohol < 3.0 <10 mg/dL Urine Color Light-brown Yellow Urine Clarity Clear Clear Urine pH 6.0 5.0-9.0 Urine Specific [place] 1.007 1.001-1.035 Urine Protein 1+ H Negative Urine Ketones Negative Negative Urine Blood 3+ H Negative /uL Urine Nitrite Negative Negative Urine Bilirubin Negative Negative Urine Urobilinogen Normal Negative mg/dL Urine Leukocyte Esterase Negative Negative /uL Urine RBC 168 0 - 4 /hpf Urine Microscopic WBC 5 0-5 /HPF Urine Squamous Epithelial Cells Few <5 /hpf Urine Bacteria Few H None Seen /hpf Urine Glucose Normal Normal mg/dL Urine Opiates Screen Neg NEGATIVE Urine Fentanyl Screen Neg NEGATIVE Urine Barbiturates Screen Neg NEGATIVE Urine Phencyclidine Screen Neg NEGATIVE Urine Amphetamines Screen Neg NEGATIVE Urine Benzodiazepines Screen Neg NEGATIVE Urine Cocaine Screen Neg NEGATIVE Urine Cannabinoids Screen Pos NEGATIVE Microbiology Date/Time Source Procedure Growth Status 10/24/25 14:21 Voided Urine Urine Culture - Preliminary Resulted Assessment/Plan Problem List: (1) Cystitis with hematuria Plan increase fluids urine culture abx per primary outpt follow up with urology 2 weeks Plan discussed with: CAR Martinez NP Oct 27, 2025 09:56
[2025-10-27] MEDS: HYDROmorphone HCL 2 MG/ML VL/or syr IV PRN ×2 (11:53→18:20)
--- NOTE | 2025-10-27 13:47 | DVHINCON2 ---
GI Consult Consult Note GI consult note Date of Consultation: 10/27/2025 Chief Complaint: Abdominal pain status post cholecystectomy Referring Physician: Dr. Alfred H&P: 50-year-old female with past medical history of seizures, endometriosis, degenerative disc disease, depression, seizure, anxiety, colitis admitted with complains of abdominal pain and hematuria for the past four days. Patient is complaining lower abdominal pain. Also has nausea and vomiting, denies hematemesis. Status post EGD one year ago in [place], with a possible nodule or cyst noted during procedure. Patient did not follow-up for the results of the procedure. Patient also is complaining of epigastric pain which he describes as cramps on and off for the past one and half years since patient had her gallbladder surgery in [place]. Patient takes Keppra 1 g b.i.d., Percocet 10 mg every 6 hours per chart Past Medical History: Seizure, endometriosis (status post hysterectomy in 2015), degenerative disc disease, depression, seizure, anxiety, colitis Past Surgical History: Hysterectomy, cholecystectomy and umbilical hernia Social History: NO smoking, drinking ETOH and use of illegal drugs. Family History: Noncontributory Review of Systems: Constitutional: no fever, chill, weight loss HEENT: no eye pain, no hearing loss, no oral lesion, no scleral icterus Heart: no chest pain, no chest pressure Lung: no cough, no dyspnea with exertion Abdomen: see HPI : + hematuria Physical exam: General: NAD, AAOX3 Chest: lung mobley clear to auscultation Heart: RRR, no murmur Abdomen: non-distended, + generalized tenderness to palpation, +BS Labs: Labs Test 10/25/25 06:30 10/24/25 14:21 Range/Units White Blood Count 6.9 4.4-10.8 10^3/uL Red Blood Count 4.06 4.0-5.20 10^6/uL Hemoglobin 12.2 12.2-16.2 g/dL Hematocrit 36.1 36.0-46.0 % Mean Corpuscular Volume 89.0 80.0-100.0 fL Mean Corpuscular Hemoglobin 30.1 28.0-32.0 pg Mean Corpuscular Hemoglobin Concent 33.9 32.0-36.0 g/dL Red Cell Distribution Width 14.3 11.8-14.3 % Platelet Count 202 140-450 10^3/uL Mean Platelet Volume 7.6 6.9-10.8 fL Neutrophils (%) (Auto) 61.6 37.0-80.0 % Lymphocytes (%) (Auto) 30.0 10.0-50.0 % Monocytes (%) (Auto) 7.4 0.0-12.0 % Eosinophils (%) (Auto) 0.8 0.0-7.0 % Basophils (%) (Auto) 0.2 0.0-2.0 % Neutrophils # (Auto) 4.3 1.6-8.6 10 ^3/uL Lymphocytes # (Auto) 2.1 0.4-5.4 10 ^3/uL Monocytes # (Auto) 0.5 0-1.3 10 ^3/uL Eosinophils # (Auto) 0.1 0-0.8 10 ^3/uL Basophils # (Auto) 0 0-0.2 10 ^3/uL Nucleated Red Blood Cells 0.0 % Prothrombin Time 11.1 9.3-11.8 sec Prothrombin Time INR 1.05 0.9-1.15 Activated Partial Thromboplast Time 30.2 24.5-34.5 SEC Sodium Level 144 136-145 mmol/L Potassium Level 3.7 3.5-5.1 mmol/L Chloride Level 108 H 98-107 mmol/L Carbon Dioxide Level 28 20-31 mmol/L Anion Gap 8 5-15 Blood Urea Nitrogen 9 9-23 mg/dL Creatinine 0.80 0.550-1.02 mg/dL Glomerular Filtration Rate Calc 90 >90 mL/min BUN/Creatinine Ratio 11.3 10.0-20.0 Serum Glucose 79 74-106 mg/dL Lactic Acid Level 0.7 0.4-2.0 mmol/L Calcium Level 8.7 8.7-10.4 mg/dL Magnesium Level 2.0 1.6-2.6 mg/dL Total Bilirubin 0.2 0.2-1.0 mg/dL Aspartate Amino Transferase (AST) 24 13-40 U/L Alanine Aminotransferase (ALT) 17 7-40 U/L Alkaline Phosphatase 79 46-116 U/L Total Protein 6.2 5.7-8.2 g/dL Albumin 3.9 3.2-4.8 g/dL Triglycerides Level 64 < 150 mg/dL Cholesterol Level 126 < 200 mg/dL LDL Cholesterol 72 < 100 mg/dL HDL Cholesterol 45 40-59 mg/dL Thyroid Stimulating Hormone (TSH) 1.30 0.55-4.78 uIU/mL Plasma/Serum Blood Alcohol < 3.0 <10 mg/dL Urine Color Light-brown Yellow Urine Clarity Clear Clear Urine pH 6.0 5.0-9.0 Urine Specific [place] 1.007 1.001-1.035 Urine Protein 1+ H Negative Urine Ketones Negative Negative Urine Blood 3+ H Negative /uL Urine Nitrite Negative Negative Urine Bilirubin Negative Negative Urine Urobilinogen Normal Negative mg/dL Urine Leukocyte Esterase Negative Negative /uL Urine RBC 168 0 - 4 /hpf Urine Microscopic WBC 5 0-5 /HPF Urine Squamous Epithelial Cells Few <5 /hpf Urine Bacteria Few H None Seen /hpf Urine Glucose Normal Normal mg/dL Urine Opiates Screen Neg NEGATIVE Urine Fentanyl Screen Neg NEGATIVE Urine Barbiturates Screen Neg NEGATIVE Urine Phencyclidine Screen Neg NEGATIVE Urine Amphetamines Screen Neg NEGATIVE Urine Benzodiazepines Screen Neg NEGATIVE Urine Cocaine Screen Neg NEGATIVE Urine Cannabinoids Screen Pos NEGATIVE Microbiology Date/Time Source Procedure Growth Status 10/24/25 14:21 Voided Urine Urine Culture - Final Complete Imaging: CT abdomen pelvis EXAM: CT CT AB PEL WO CON-NO ORAL OR IV HISTORY: flank pain COMPARISON STUDY: None TECHNIQUE: Multidetector CT of the abdomen and pelvis was performed from lung bases to pubic symphysis. Imaging was performed without IV contrast. Axial, coronal, and sagittal multiplanar reformats were obtained from the axial data set by the technologist. RADIATION DOSE: CTDI vol 5.7 mGy. DLP 284.4 mGy.cm FINDINGS: Limited evaluation of the solid organs in the absence of IV contrast. Lungs: The lung bases are clear. Liver: Unremarkable. Spleen: Unremarkable. Pancreas: Unremarkable. Gallbladder: Prior cholecystectomy with dilated common bile duct measuring up to 14 mm. Adrenals: Unremarkable Kidneys: Unremarkable. Pelvic Viscera: Unremarkable. Vasculature: Unremarkable. Retroperitoneum: Unremarkable. Bowel: No bowel obstruction. Portions of the bowel are decompressed, limiting assessment. The appendix is normal. Musculoskeletal: Unremarkable. Soft tissues: Tiny fat containing ventral abdominal wall hernia. Spinal stimulator is noted within the right flank. IMPRESSION: 1. No acute abdominopelvic abnormality. 2. Prior cholecystectomy with dilated common bile duct, possibly postsurgical, though comparison with prior imaging is suggested. If clinically indicated, MRCP may be beneficial in further assessment. 3. Incidental findings as detailed. Assessment: Abdominal pain Hematuria Status post cholecystectomy Spinal stimulator right flank per CT Plan: Discussed with Dr. Washington IV antibiotics for UTI Protonix 40 mg b.i.d, Carafate q.i.d. and Zofran as needed Possible post cholecystectomy dilation of common bile duct noted, and no LFTs elevated at this time. We will continue to monitor patient Plan discussed with patient and RN Thank you for this consult Date of Service: Oct 27, 2025 Billing Provider: SHARRON PITTS Common Visit Codes: CONSULT ONLY Consultation Codes: [id number] CONSULT <60MIN SHARRON PITTS Oct 27, 2025 13:47
--- NOTE | 2025-10-27 17:12 | DVHPN2 ---
Subjective PATIENT'S SAYS DILAUDID 0.25 IS NOT WORKING SHE REQUESTING MORE DOSE, NEUROLOGY 0.5 EVERY 3 HOURS P.R.N. FOR SEVERE PAIN. 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 Medications Current Medications Medications Dose Ordered Sig/Jeffrey Route Start Time Stop Time Status Last Admin Dose Admin Ondansetron HCl 4 mg Q4HP PRN IV 10/25/25 02:30 10/26/25 21:26 4 MG Acetaminophen 650 mg Q6HR PO 10/25/25 06:00 Ketorolac Tromethamine 15 mg Q6HPRN PRN IV 10/25/25 02:30 10/30/25 02:29 10/27/25 01:21 15 MG Ceftriaxone Sodium 50 ml @ 100 mls/hr DAILY@09 IV 10/25/25 09:00 UNV Levetiracetam 500 mg BID PO 10/25/25 10:00 10/27/25 09:36 500 MG Ceftriaxone Sodium 50 ml @ 100 mls/hr DAILY@ IV 10/26/25 03:00 10/27/25 09:56 100 MLS/HR Clonazepam 0.25 mg TID PO 10/25/25 22:00 10/27/25 14:08 0.25 MG Pantoprazole Sodium 40 mg BID IV 10/27/25 22:00 Sucralfate 1 gm QID@0600,1130,1700,2200 GT 10/27/25 17:00 Levothyroxine Sodium 25 mcg DAILY PO 10/28/25 10:00 UNV Prazosin HCl 10 mg HS PO 10/27/25 22:00 UNV Patient Own Medication 1 tab TID PO 10/27/25 22:00 UNV Patient Own Medication 1 cap DAILY PO 10/28/25 10:00 UNV Patient Own Medication 1 cap BID PO 10/27/25 22:00 UNV Hydromorphone HCl 0.5 mg Q3HPRN PRN IV 10/27/25 18:10 UNV Laboratory Results Laboratory Tests 10/25/25 06:30 Urinalysis Test 10/24/25 14:21 Urine Color Light-brown (Yellow) Urine Clarity Clear (Clear) Urine pH 6.0 (5.0-9.0) Urine Specific [place] 1.007 (1.001-1.035) Urine Protein 1+ (Negative) H Urine Ketones Negative (Negative) Urine Blood 3+ /uL (Negative) H Urine Nitrite Negative (Negative) Urine Bilirubin Negative (Negative) Urine Urobilinogen Normal mg/dL (Negative) Urine Leukocyte Esterase Negative /uL (Negative) Urine RBC 168 /hpf (0 - 4) Urine Microscopic WBC 5 /HPF (0-5) Urine Squamous Epithelial Cells Few /hpf (<5) Urine Bacteria Few /hpf (None Seen) H Urine Glucose Normal mg/dL (Normal) Microbiology Microbiology Date/Time Source Procedure Growth Status 10/24/25 14:21 Voided Urine Urine Culture - Final Complete Assessment/Plan Assessment/Plan 50-year-old female with a known history of seizure disorder, endometriosis, anxiety disorder, degenerative disc disease, chronic back pain presented to the hospital with the abdominal pain and blood in the urine found to have 1. Acute cystitis with a gross hematuria, ON ANTIBIOTICS CURRENTLY 2. Abdominal pain with a mildly dilated CBD suspected secondary to postop currently cystectomy, patient is requesting GI consult 3. Acute on chronic back pain 4. Seizure disorder 5. Anxiety disorder 6. Endometriosis 7. CHRONIC NARCOTIC DEPENDENCY -continue pain meds as needed , URINE CULTURE SHOWS NO EVIDENCE OF ANY GROWTH, discharge plan once pain is better controlled Plan discussed with: Patient My Orders Orders - MADISON THOMSON MD Procedure Category Date Status Time Levothyroxine Tablet PHA 10/28/25 Logged (Synthroid Tablet) 10:00 Prazosin Hcl Capsule PHA 10/27/25 Logged (Minipres Capsule) 22:00 (Nf) Baclofen PHA 10/27/25 Logged 22:00 (Nf) Fluoxetine Hcl PHA 10/28/25 Logged 10:00 (Nf) Pregabalin PHA 10/27/25 Logged (Lyrica) 22:00 Hydromorphone PHA 10/27/25 Logged Injection (Dilaudid 18:10 Aspartate Amino LAB 10/28/25 Verified Transferase 05:00 Alanine LAB 10/28/25 Verified Aminotransferase 05:00 Date of Service: Oct 27, 2025 Billing Provider: MADISON THOMSON MD Common Visit Codes: [id number] INP/OBS CARE(HIGH) MADISON THOMSON MD Oct 27, 2025 17:12
[2025-10-27] MEDS: SUCRALFATE 1 GM/10 ML ORAL SUSP GT SCH (18:10)
[2025-10-27] MEDS: BACLOFEN 10 MG TAB PO SCH (21:27)
[2025-10-27] MEDS: PANTOPRAZOLE 40 MG/10 ML VIAL INJ IV SCH (21:30)
[2025-10-27] MEDS: PREGABALIN 25 MG CAP PO SCH (21:31)
[2025-10-27] MEDS: PREGABALIN CAPSULE 75 MG CAP PO SCH (21:32)
[2025-10-27] MEDS: PATIENTS OWN MEDICATION (Pregabalin (Lyrica) 1 CAP) PO SCH (22:00)
[2025-10-28 01:00] VITALS: BP 120/93; PULSE 85; RESP 19; TEMP 98.3; O2SAT 99
[2025-10-28] MEDS ORDERED: OXYCODONE W/ ACETAMINOPHEN 5/325MG TABLET PO ONE (04:15)
[2025-10-28 05:00] VITALS: BP 119/74; PULSE 103; RESP 18; TEMP 97.9; O2SAT 95
[2025-10-28 05:09] VITALS: BP 128/69; PULSE 85; RESP 18
[2025-10-28 07:23] LABS: Alanine Aminotransferase 15 U/L (7-40)
[2025-10-28] MEDS ORDERED: LEVOTHYROXINE SODIUM 25 MCG TAB PO SCH (10:00)
== END 2025-10-28 06:05 | disposition left against medical advice (07) | DRG 690 ==
LOC: ER 13:55 → OVERFLOW 10-25 02:16 → WEST WING 10-25 03:39 → TELE-WESTW 10-25 16:46
PROVIDERS: ADMIT Internal Medicine; ATTEND Internal Medicine
DX: N30.01 Acute cystitis with hematuria (principal); K83.8 Other specified diseases of biliary tract; F32.A Depression, unspecified; G40.909 Epilepsy, unspecified, not intractable, without status epilepticus; N80.9 Endometriosis, unspecified; M51.379 Other intervertebral disc degeneration, lumbosacral region without mention of lumbar back pain or lower extremity pain; Z53.29 Procedure and treatment not carried out because of patient's decision for other reasons; M54.9 Dorsalgia, unspecified; F41.9 Anxiety disorder, unspecified; G89.29 Other chronic pain; Z90.710 Acquired absence of both cervix and uterus; Z79.899 Other long term (current) drug therapy; Z90.49 Acquired absence of other specified parts of digestive tract; Z98.1 Arthrodesis status; Z82.49 Family history of ischemic heart disease and other diseases of the circulatory system; Z83.6 Family history of other diseases of the respiratory system; Z88.2 Allergy status to sulfonamides; Z88.8 Allergy status to other drugs, medicaments and biological substances; Z91.048 Other nonmedicinal substance allergy status
CPT/HCPCS: 36415; 74176; 80048; 80053; 80061; 80307; 80320; 81001; 83605; 83735; 84443; 84450; 84460; 85025; 85610; 85730; 87086; G0378; J1885; J2405; J2470